=== PATIENT | female | born 1995 | race Caucasian/White ===

== ENCOUNTER 2020-03-14 10:24 | Emergency (ER) | payer OTHER, SELFPAY ==
[2020-03-14 10:44] VITALS: BP 106/64; PULSE 86; RESP 16; TEMP 36.7; O2SAT 100
--- NOTE | 2020-03-14 11:02 | ED.URI ---
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 Patient states she has about 1/2-week since Tuesday onset of sore throat. No fever, earache, cough, loss of taste/smell, S OB, sneezing/wheezing, chest pains, travel or Covid exposure. Symptoms are mild, worse with swallowing Related Data Home Medications Medication Instructions Recorded Confirmed aripiprazole mg 03/14/20 lamotrigine 03/14/20 topiramate 03/14/20 Allergies Allergy/AdvReac Type Severity Reaction Status Date / Time No Known Allergies Allergy Verified 01/31/13 10:45 Review of Systems Review of Systems: Narrative: General/Constitutional: No weight loss,fever Eyes: N0: Redness,discharge Ears/Nose/Throat: No: Epistaxis,ear discharge Respiratory: Denies: Hemoptysis Gastrointestinal: No Vomiting, Bleeding-rectal Skin: No Lumps, eruption Neurologic: No Focal Weakness,Sz Hematologic: Denies: Petechiae/Purpura Psychiatric: No: Suicida ideationl All Other Systems: Reviewed and Negative PMFSH Comments At time of signature, agree with nursing past medical, surgical, social and family history. There is no relevant family history pertinent to the presenting complaint Exam Narrative: Exam Narrative: General Appearance: Well appearing, Well nourished EYE: PERRLA, Conjunctiva clear Ears: Auditory canal normal, TM normal Nose: Rhinorrhea, Mucousal erythema Mouth/Throat: MM moist, Uvula midline, Pharyngeal erythema Neck: Supple, No adenopathy Respiratory: No respiratory distress, airway patent Musculoskeletal: Non tender, Normal strength Skin: Warm, Dry Neurological: A&O x3, CN II-XII intact Psychiatric: Normal mood, Normal affect Course Vital Signs Vital signs: Vital Signs Temperature 98.1 F 03/14/20 10:44 Pulse Rate 86 03/14/20 10:44 Respiratory Rate 03/14/20 10:44 Blood Pressure 106/64 03/14/20 10:44 Pulse Oximetry 100 03/14/20 10:44 Temperature 98.1 F 03/14/20 10:44 Pulse Rate 86 03/14/20 10:44 Respiratory Rate 16 03/14/20 10:44 Blood Pressure 106/64 03/14/20 10:44 Pulse Oximetry 100 03/14/20 10:44 MDM - URI/Sore Throat Lab Data Labs: Lab Results 03/14/20 Range/Units 10:41 POC SARS CoV-2 Ag Negative (Negative) Strep Screen Presumptive Negative *(Reference Range: Negative)* Discharge Plan Discharge Clinical Impression: Pharyngitis Qualifiers: Pharyngitis/tonsillitis etiology: unspecified etiology Qualified Code(s): J02.9 - Acute pharyngitis, unspecified Patient Disposition: Home, Self-Care Condition: Stable Instructions: Antibiotic Form, Pharyngitis (ED) Prescriptions: New azithromycin 250 mg tablet See Rx Instructions .ROUTE .COMPLEX Qty: 6 RF: 0 Lidocaine Viscous 2 % solution 5 ml MUCOUS MEM QID PRN (Reason: pain) Qty: 100 RF: 0 No Action lamotrigine 150 mg tablet RF: 0 topiramate 25 mg tablet RF: 0 aripiprazole 15 mg tablet RF: 0 Other Ambulatory Orders: SARS-CoV-2 RNA, Qual RT-PCR (Routine) Location: Determined by Patient Ordered By: Dev Denton Follow-up/Referrals: PHYSICIAN,INCINERATOR [employer] [Primary Care Provider] -
== END 2020-03-14 11:10 | disposition home or self-care (01) ==
PROVIDERS: Emergency Provider Emergency Medicine
DX: J02.9 Acute pharyngitis, unspecified (principal); Z20.822 Contact with and (suspected) exposure to COVID-19
CPT/HCPCS: 87081; 87426; 87880; 99203; C9803; G0463